=== PATIENT | male | born 1955 | race Caucasian/White ===

== ENCOUNTER 2024-03-14 00:30 | Day surgery (SDC) | payer MEDICARE, SELFPAY ==
[2023-08-29 13:49] VITALS: BMI 23.8
[2024-01-08 14:00] VITALS: BMI 23.8
[2024-01-30 10:30] VITALS: BMI 23.8
[2024-02-23 12:59] VITALS: BMI 23.8
[2024-03-14 12:12] VITALS: BP 128/75; PULSE 71; RESP 16; TEMP 37; O2SAT 100
[2024-03-14] MEDS: LACTATED RINGERS 1,000 ML 150 ML IV CONT (12:20)
--- NOTE | 2024-03-14 12:36 | WPDANESEPPF ---
Anes - Initial Pre Proc Eval Procedure: Operation Date: 03/14/24 13:30 Proposed Procedures p Screening Colonoscopy - Ryne Molina MD Date/Time: 03/14/24 12:36 Surgeon: Ryne Molina MD Pre Op Diagnosis: hx colon polyps Patient Data Age: 68 Gender: M Height: 1.75 m Weight: 70.9 kg Last Vital Signs Temp 37.0 C 03/14/24 12:12 Pulse 71 03/14/24 12:12 Resp 16 03/14/24 12:12 BP 128/75 03/14/24 12:12 Pulse Ox 100 03/14/24 12:12 O2 Del Method Room Air 03/14/24 12:12 Allergies Allergy/AdvReac Type Severity Reaction Status Date / Time misoprostol Allergy Mild Itching Verified 03/14/24 12:10 Penicillins Allergy Mild Unknown Verified 03/14/24 12:10 [email or web address] [From Chantix] AdvReac chest pain Verified 03/14/24 12:10 Home Medications Medication Instructions Recorded Confirmed Type atorvastatin 20 mg tablet 20 mg PO QHS #90 tabs 03/08/24 03/14/24 Rx cholecalciferol (vitamin D3) 125 125 mcg PO DAILY #1 cap 03/08/24 03/14/24 Rx mcg (5,000 unit) capsule ergocalciferol (vitamin D2) 1,250 1,250 mcg PO WEEKLY #12 caps 03/08/24 03/14/24 Rx mcg (50,000 unit) capsule fluticasone fur. 100 mcg-umeclid 1 inh inhalation Q24H #60 ea 03/08/24 03/14/24 Rx 62.5 mcg-vilant 25 mcg inhalat.powder meloxicam 15 mg tablet 15 mg PO DAILY #14 tabs 03/08/24 03/14/24 Rx Patient hx anesthesia problems: none Family hx anesthesia problems: none Results Review: All pre-operative results and documents have been reviewed as part of the pre-operative evaluation. [facility] Past Medical History Medical History Colon polyps Mixed hyperlipidemia Normal colonoscopy Prostate cancer Smoker Vitamin D deficiency Surgical History Surgical History H/O prostatectomy Family History Family History Father Alcoholism Heart disease Social History Social History Smoking packs per day: 1.5 Smoking cigarettes per day: 30.0 Years smoked: 58 Smoking pack-years: 87.00 Smoking status: Current every day smoker Tobacco type: cigarettes Alcohol intake: current Drinks per week: 7 Alcohol use details: BEER Substance use: current Substance use type: marijuana Other substance usage details: SMOKES MARIJUANA DAILY Lack of Transportation: No Lack of Food: Never True Current Housing: I Have Housing Concerned About Future Housing: No Difficulty Paying Gas/Electric Bills: No Difficulty Paying for Meds: No Currently Unemployed: No Education: High School Diploma/GED Living arrangements: alone Sexual Orientation (if Verbalized by the Patient): Straight or Heterosexual Spiritual care concerns: No Anes - Eval Final PreProcedure Day of Procedure 03/14/24 12:36 Patient weight: normal Heart: regular rate and rhythm Lungs: decreased breath sounds Airway: Mallampati scale class II Neurological: alert and oriented Last oral intake: >/= 8 hours ASA classification: IV Emergent: no Anesthetic plan: proceed Anesthesia type and monitoring: general GIVS and standard monitoring Results Review: All pre-operative results and documents have been reviewed as part of the pre-operative evaluation. Informed Consent: The patient's anesthetic plan and its attendant risks and benefits were discussed with the patient/family/POA. Questions were solicited and answers provided to the satisfaction of the patient/family/POA.
--- NOTE | 2024-03-14 13:33 | PM.HPGS ---
History of Present Illness History of Present Illness Consent: Risks, benefits, and alternatives have been discussed and questions answered. Patient agrees to proceed with procedure. Chief complaint: hx colon polyps Narrative: Alla Landrum is a 68 year old male with colon polyp in 2018 Review of Systems Review of Systems: All systems reviewed & are unremarkable except as noted in HPI and below PMFSH Past Medical History Medical History Colon polyps Mixed hyperlipidemia Normal colonoscopy Prostate cancer Smoker Vitamin D deficiency Surgical History Surgical History H/O prostatectomy Family History Family History Father Alcoholism Heart disease Social History Social History Smoking packs per day: 1.5 Smoking cigarettes per day: 30.0 Years smoked: 58 Smoking pack-years: 87.00 Smoking status: Current every day smoker Tobacco type: cigarettes Alcohol intake: current Drinks per week: 7 Alcohol use details: BEER Substance use: current Substance use type: marijuana Other substance usage details: SMOKES MARIJUANA DAILY Lack of Transportation: No Lack of Food: Never True Current Housing: I Have Housing Concerned About Future Housing: No Difficulty Paying Gas/Electric Bills: No Difficulty Paying for Meds: No Currently Unemployed: No Education: High School Diploma/GED Living arrangements: alone Sexual Orientation (if Verbalized by the Patient): Straight or Heterosexual Spiritual care concerns: No Meds Home Medications and Allergies Home Medications Medication Instructions Recorded Confirmed Type atorvastatin 20 mg tablet 20 mg PO QHS #90 tabs 03/08/24 03/14/24 Rx cholecalciferol (vitamin D3) 125 125 mcg PO DAILY #1 cap 03/08/24 03/14/24 Rx mcg (5,000 unit) capsule ergocalciferol (vitamin D2) 1,250 1,250 mcg PO WEEKLY #12 caps 03/08/24 03/14/24 Rx mcg (50,000 unit) capsule fluticasone fur. 100 mcg-umeclid 1 inh inhalation Q24H #60 ea 03/08/24 03/14/24 Rx 62.5 mcg-vilant 25 mcg inhalat.powder meloxicam 15 mg tablet 15 mg PO DAILY #14 tabs 03/08/24 03/14/24 Rx Allergies Allergy/AdvReac Type Severity Reaction Status Date / Time misoprostol Allergy Mild Itching Verified 03/14/24 12:10 Penicillins Allergy Mild Unknown Verified 03/14/24 12:10 [email or web address] [From Chantix] AdvReac chest pain Verified 03/14/24 12:10 Vital Signs Vital Signs - 24 hr 03/14/24 12:12 Temperature 98.6 F Pulse Rate 71 Respiratory Rate 16 Blood Pressure 128/75 Pulse Oximetry 100 Oxygen Delivery Room Air Exam Const: General: comfortable and no acute distress HENMT: Face/Nose/Sinus: Normal nares present Eyes: General: appearance normal, both eyes and all related structures Neck: Neck: no JVD Resp: Auscultation: clear to auscultation bilaterally Cardio: Rate: regular rate Rhythm: regular rhythm GI: Inspection: non-distended GI Palp: Yes Soft to palpation Skin: General skin exam: normal color Neuro: General: gait normal Speech: normal speech Extrem: General: normal to inspection Psych: Mental Status: mental status grossly normal Assessment and Plan Assessment and plan (1) Colon polyps: Code(s): K63.5 - Polyp of colon Status: Acute Assessment and Plan: colonoscopy
[2024-03-14 13:59] VITALS: BP 84/56; PULSE 67; RESP 18; O2SAT 100
[2024-03-14 14:09] VITALS: BP 99/64; PULSE 61; RESP 18; O2SAT 98
[2024-03-14 14:19] VITALS: BP 122/83; PULSE 68; RESP 20; O2SAT 100
== END 2024-03-14 14:35 | disposition home or self-care (01) ==
PROVIDERS: PCP Physician Assistant Medical; Visit Provider Internal Medicine Gastroenterology
PROC: 0DJD8ZZ Inspection of Lower Intestinal Tract, Via Natural or Artificial Opening Endoscopic (ICD-10-PCS; CPT 45378; principal; 2024-03-14 13:30)
DX: Z12.11 Encounter for screening for malignant neoplasm of colon (principal); D12.2 Benign neoplasm of ascending colon; K57.30 Diverticulosis of large intestine without perforation or abscess without bleeding; K64.8 Other hemorrhoids; E78.2 Mixed hyperlipidemia; E55.9 Vitamin D deficiency, unspecified; Z85.46 Personal history of malignant neoplasm of prostate; F17.210 Nicotine dependence, cigarettes, uncomplicated; F12.90 Cannabis use, unspecified, uncomplicated; Z79.51 Long term (current) use of inhaled steroids
CPT/HCPCS: 45385; 88305; J2003; J2704; J7120